=== PATIENT | male | born 1965 | race Caucasian/White ===

== ENCOUNTER 2019-11-21 15:25 | Emergency (ER) | payer OTHER ==
--- NOTE | 2019-11-21 15:52 | TELE ---
HPI Do you have fever,cough or shortness of breath?: No - General Reason For Visit: COVID 19 TEST History Source: Patient Exam Limitations: No Limitations - History of Present Illness 11/21/19 15:51 54 year old male with recent covid positive contact requesting COVID 19 testing. Pt otherwise denies: fevers, chills, syncope, lightheadedness, dizziness, headaches, chest pain, shortness of breath, palpitations, back pain, abdominal pain, nausea, vomiting, diarrhea. Physical exam performed over video chat benign in nature Patient to proceed to the outside [facility] for COVID-19 testing Isolation and quarantine precautions given Discharge Diagnosis at time of Disposition: COVID-19 - Referrals - Patient Instructions Discharge Instructions: [facility]-Coronavirus Instructions - Discharge Disposition: HOME Condition at time of Disposition: Stable
== END 2019-11-21 15:52 | disposition home or self-care (01) ==
LOC: JVIRT 15:25
DX: Z03.818 Encounter for observation for suspected exposure to other biological agents ruled out (principal)
CPT/HCPCS: C9803; Q3014-GT; U0003